=== PATIENT | male | born 1970 | race American Indian/Alaskan Native ===

== ENCOUNTER 2019-08-31 05:53 | Day surgery (SDC) | payer OTHER ==
[~2019-08-31 05:53] MED LIST: LACTATED RINGERS 1,000 ML IV SCH
[2019-08-31] MEDS ORDERED: MIDAZOLAM 2 MG/2 ML INJ IV NR (06:00)
[2019-08-31] MEDS ORDERED: FAMOTIDINE 20 MG/2 ML INJ IV ONE (06:00)
[2019-08-31] MEDS ORDERED: BACTERIOSTATIC SODIUM CHLORIDE 0.9% 30 ML VIAL INFILTRATI ONE (06:34)
[2019-08-31] MEDS ORDERED: LIDOCAINE (1%) 10 MG/1 ML VIAL 20 ML MDV ONE (07:10)
[2019-08-31] MEDS ORDERED: BUPIVACAINE/PF (0.25%) 2.5 MG/ML 30 ML VIAL INFILTRATI ONE ×2 (07:10→08:00)
[2019-08-31] MEDS ORDERED: fentaNYL 100 MCG/2 ML INJ IV PRN (07:20)
--- NOTE | 2019-08-31 07:20 | Anesthesia Consultation ---
Anesthesia Consult and Med Hx Date of service: 08/31/19 - Airway Anesthetic Teeth Evaluation: Good ROM Head & Neck: Adequate Mental/Hyoid Distance: Adequate Mallampati Class: Class III Intubation Access Assessment: Possibly Difficult - Pulmonary Exam CTA: Yes - Cardiac Exam Cardiac Exam: RRR - Pre-Operative Health Status ASA Pre-Surgery Classification: ASA2 Proposed Anesthetic Plan: General - Pulmonary Hx Smoking: No Hx Respiratory Symptoms: No - Cardiovascular System Hx Hypertension: No Hx Heart Attack/AMI: No - Central Nervous System Hx Back Pain: Yes Hx Psychiatric Problems: Yes (depression) - Gastrointestinal Hx Ulcer: Yes (PUD) Hx Gastroesophageal Reflux Disease: Yes - Endocrine Hx Renal Disease: No Hx Liver Disease: No Hx Insulin Dependent Diabetes: No Hx Non-Insulin Dependent Diabetes: No Hx Thyroid Disease: No - Other Systems Hx Obesity: No - Additional Comments Anesthesia Medical History Comments: No hx anesthetic complications.
--- NOTE | 2019-08-31 07:20 | Anesthesia Day of Surgery ---
Anesthesia Day of Surgery - Day of Surgery Patient Examined: Yes Patient H&P Reviewed: Yes Patient is NPO: Yes
[2019-08-31] MEDS ORDERED: ceFAZolin/STERILE WATER 2 GM/20 ML SYRINGE IV NR (07:26)
[2019-08-31] MEDS ORDERED: PROPOFOL 200 MG/20 ML VIAL IV ONE (07:28)
[2019-08-31] MEDS ORDERED: LIDOCAINE MPF (2%) 20 MG/1 ML VIAL 5 ML ONE (07:31)
[2019-08-31] MEDS ORDERED: dexAMETHasone 20 MG/5 ML VIAL ONE (07:58)
[2019-08-31] MEDS ORDERED: ONDANSETRON 4 MG/2 ML INJ ONE (07:58)
[2019-08-31] MEDS ORDERED: LIDOCAINE (1%) 10 MG/1 ML VIAL 20 ML MDV INFILTRATI ONE (08:00)
--- NOTE | 2019-08-31 08:56 | Short Stay Summary ---
Short Stay Documentation Date of service: 08/31/19 - History Principal diagnosis: soft tissue mass right lower back, left flank, abdominal wall, and left arm H&P: obtained from office - Allergies and Medications Current Medications: Allergies No Known Allergies Allergy (Verified 08/24/19 13:47) Home Medications Medication Instructions Recorded Confirmed Last Taken Type Cyclobenzaprine [Flexeril] 10 mg PO TID PRN 08/24/19 08/31/19 08/30/19 09:00 History Meloxicam [Mobic] 7.5 mg PO BID 08/24/19 08/31/19 08/29/19 08:00 History Omeprazole 40 mg PO DAILY 08/24/19 08/31/19 08/28/19 10:00 History SUMAtriptan [Imitrex] 20 mg NS Q2H PRN 08/24/19 08/31/19 07/02/19 11:00 History Active Medications Cefazolin Sodium (Ancef/Sterile Water 2 Gm/20 Ml) 2 gm IV PREOP NR Stop: 08/31/19 13:00 Fentanyl (Sublimaze) 50 mcg IV Q5MIN PRN PRN Reason: Pain , Severe (7-10) Stop: 08/31/19 22:00 Lactated Ringer's (Lactated Ringers) 1,000 mls @ 100 mls/hr IV DIRECT AURELIANO Last Admin: 08/31/19 06:47 Dose: 100 mls/hr Documented by: Midazolam HCl (Versed) 2 mg IV PREOP NR Stop: 08/31/19 23:59 Last Admin: 08/31/19 07:34 Dose: 2 mg Documented by: - Brief post op/procedure progress note Date of procedure: 08/31/19 Pre-op diagnosis: soft tissue mass right lower back, left flank, abdominal wall, and left arm Post-op diagnosis: same Procedure: excision of soft tissue masses right lower back, left flank, abdominal wall, and left arm Anesthesia: GETA, local Findings: soft tissue mass 1. right lower back - 2 cm, 2. left flank - 1 cm 3. abdominal wall - 1 cm, 4. left arm - 2cm Surgeon: RUTH RODRIGUEZ Estimated blood loss: minimal Pathology: list (soft tissue mass 1. right lower back, 2. left flank, 3. abdominal wall, and 4. left arm) Specimen disposition: to lab Condition: stable - Hospital course Hospital course: Pt observed in PACU and discharged to PACU in stable condition when criteria met - Disposition Condition at discharge: Good Disposition: DC-01 TO HOME OR SELFCARE Short Stay Discharge Plan Activity: no restrictions Diet: regular Wound: open to air, per your surgeon's advice Additional Instructions: May shower tomorrow, pat incisions dry, do not scrub. Do not submerge incisions in water like baths/hottubs/pools Follow up with: [facility] [Primary Care Provider] - 7 Days RUTH RODRIGUEZ DO [Staff Physician] - 14 Days
[2019-08-31 09:43] VITALS: BP 139/83
--- NOTE | 2019-08-31 11:40 | Post Anesthesia Evaluation ---
- Post Anesthesia Evaluation Patient Participated: Yes Airway Patent: Yes Stable Respiratory Function: Yes Nausea/Vomiting: No Temp > 96.8F: Yes Pain Manageable: Yes Adequeate Hydration: Yes Anesthesia Complications: No
--- NOTE | 2019-08-31 14:17 | Operative Report ---
Operative Report Operative Report: - Brief post op/procedure progress note Date of procedure: 08/31/19 Pre-op diagnosis: soft tissue mass right lower back, left flank, abdominal wall, and left arm Post-op diagnosis: same Procedure: Excision of soft tissue masses right lower back, left flank, abdominal wall, and left arm Anesthesia: GETA, local Findings: Soft tissue masses 1. right lower back - 2 cm, 2. left flank - 1 cm 3. abdominal wall - 1 cm, 4. left arm - 2cm Surgeon: RUTH RODRIGUEZ Estimated blood loss: minimal Pathology: list (soft tissue mass 1. right lower back, 2. left flank, 3. abdominal wall, and 4. left arm) Specimen disposition: to lab Condition: stable Hospital course: Pt observed in PACU and discharged to PACU in stable condition when criteria met HPI an indication: 49-year-old male who presented to the office for evaluation of soft tissue masses. There are 4 masses in different locations all of which were giving the patient discomfort. The first is located in the epigastrium, the second in the left lateral abdominal/flank area, the third in the left upper arm, and the fourth in the right lower back. I discussed all risks, benefits, alternatives to surgery with the patient questions were answered. Consent obtained for excision of soft tissue masses. Procedure in detail: Patient was identified in the preoperative area, taken back to the operating room, placed on operating room table in supine position. After anesthesia was induced the abdomen, left abdominal/flank area, left upper arm were prepped and draped in usual sterile fashion and a timeout performed. I first turned my atte ntion to the epigastric soft tissue mass. Local anesthetics infiltrated into the skin and subcutaneous tissue at the intended incision site. A 1 cm incision was made using a 15 blade. Dissection was carried down through the skin and subcutaneous tissue using electrocautery until the mass was encountered. The mass was circumferentially dissected from the surrounding tissue using blunt dissection and electrocautery. Once the mass was completely it was removed from the wound and measured. It measured 1 cm. The mass was consistent with lipoma. The wound was irrigated and hemostasis carefully ensured. The skin was closed with 4-0 Monocryl subcuticular stitch and skin glue. The left lateral abdominal/flank mass along with the left upper arm mass were excised in a similar fashion. Please see findings for the measurements. I then turned my attention to the right lower back mass. The patient was repositioned in right lateral decubitus position and all bony prominences padded appropriately. This mass was excised in the same fashion as above. Please see the findings for measurement. Skin was closed with 4-0 monocryl subcuticular stitches and skin glue. At the end of the case, all sponge, instrument, sharp counts were correct 2. Patient was awoken from anesthesia, extubated, transferred to the stretcher, and taken to PACU in stable condition.
== END 2019-08-31 05:54 | disposition home or self-care (01) ==
LOC: OR 05:53
PROVIDERS: ATTEND Surgery
DX: R22.2 Localized swelling, mass and lump, trunk (principal); R22.32 Localized swelling, mass and lump, left upper limb; D17.22 Benign lipomatous neoplasm of skin and subcutaneous tissue of left arm; D17.1 Benign lipomatous neoplasm of skin and subcutaneous tissue of trunk; D17.79 Benign lipomatous neoplasm of other sites; K21.9 Gastro-esophageal reflux disease without esophagitis; F32.9 Major depressive disorder, single episode, unspecified; G43.909 Migraine, unspecified, not intractable, without status migrainosus; Z98.890 Other specified postprocedural states; Z80.8 Family history of malignant neoplasm of other organs or systems; Z79.899 Other long term (current) drug therapy
CPT/HCPCS: 21930; 22902; 24075; 88304; J1100; J2250; J2405; J2704; J3010; J7120; 88307